=== PATIENT | female | born 1980 | race Hispanic/Latino ===

== ENCOUNTER 2017-04-10 01:52 | Inpatient (IN) | payer OTHER ==
[2017-04-10] MEDS ORDERED: ZOFRAN IV ONE (02:11)
[2017-04-10] MEDS ORDERED: MORPHINE IV ONE (02:11)
[2017-04-10] MEDS ORDERED: NITRO-BID 2% TP ONE (02:11)
--- NOTE | 2017-04-10 02:23 | Emergency Department Report ---
HPI - General Time Seen by Provider: 04/10/17 02:08 - HPI HPI: Room 18 The patient is a 36-year-old female presenting with a chief complaint of chest pain. The patient states her symptoms began this evening awakened her from her sleep with sharp left-sided chest pain. Patient admits to nausea but denies vomiting, shortness of breath or diaphoresis. The patient currently gives her pain a score of 7/10 Location: Left chest Duration: Constant times tonight Quality: Sharp Severity:7/10 Modifying factors: [see above] Context: [see above] Mode of transportation: [not driving] ED Past Medical Hx - Past Medical History Hx Hypertension: Yes Additional medical history: Cardiomegaly - Surgical History Past Surgical History?: No Additional Surgical History: - Family History Family history: no significant - Social History Smoking Status: Current Every Day Smoker (one pack per day) Substance Use Type: None (denies illicit drug use), Alcohol (occasional) ED Review of Systems ROS: Stated complaint: CHEST PAIN Other details as noted in HPI Comment: All other systems reviewed and negative Constitutional: denies: chills, fever Eyes: denies: eye pain, eye discharge, vision change ENT: denies: ear pain, throat pain Respiratory: denies: cough, shortness of breath, wheezing Cardiovascular: chest pain Endocrine: no symptoms reported Gastrointestinal: nausea. denies: vomiting Genitourinary: denies: urgency, dysuria, discharge Musculoskeletal: denies: back pain, joint swelling, arthralgia Skin: denies: rash, lesions Neurological: denies: headache, weakness, paresthesias Psychiatric: denies: anxiety, depression Hematological/Lymphatic: denies: easy bleeding, easy bruising Physical Exam - Physical Exam Physical Exam: GENERAL: The patient is well-developed well-nourished female lying on stretcher not appearing to be in acute distress. [] HEENT: Normocephalic. Atraumatic. Extraocular motions are intact. Patient has moist mucous membranes. NECK: Supple. Trachea midline CHEST/LUNGS: Clear to auscultation. There is no respiratory distress noted. HEART/CARDIOVASCULAR: Regular. There is no tachycardia. There is no gallop rub or murmur. ABDOMEN: Abdomen is soft, nontender. Patient has normal bowel sounds. There is no abdominal distention. SKIN: There is no rash. There is no edema. There is no diaphoresis. NEURO: The patient is awake, alert, and oriented. The patient is cooperative. The patient has normal speech MUSCULOSKELETAL: There is no evidence of acute injury. ED Course - Consultations Consultation #1: 04/10/17 02:02 Case discussed and EKG reviewed with Dr. Moyer. Will call back 04/10/17 02:[address] Moyer stating that EKG shows significant changes from previous EKG. Requests code STEMI be called ED Medical Decision Making - EKG Data -: EKG Interpreted by Me EKG shows normal: sinus rhythm Rate: normal - EKG Data When compared to previous EKG there are: previous EKG unavailable Interpretation: acute CT (ST elevation in leads 1 and aVL with depressions in leads 3, aVF and V5, V6) - Radiology Data Radiology results: image reviewed (chest x-ray) interpreted by me: Chest x-ray-no focal infiltrates, no pneumothorax - Differential Diagnosis STEMI, ACS, pericarditis, GERD Critical care attestation.: If time is entered above; I have spent that time in minutes in the direct care of this critically ill patient, excluding procedure time. ED Disposition Clinical Impression: Chest pain, STEMI (ST elevation myocardial infarction) Disposition: DC-09 OP ADMIT IP TO THIS HOSP Is pt being admited?: Yes Does the pt Need Aspirin: Yes Condition: Serious Instructions: Chest Pain (ED) Time of Disposition: 02:20 (awaiting production laborer)
[2017-04-10] MEDS ORDERED: HEPARIN 10,000 UNITS/10 ML IV ONE (02:29)
[2017-04-10 02:44] LABS: Basophils % (Auto) 0.8 % (0.0-1.8); Eosinophils % (Auto) 2.1 % (0.0-4.3); Hematocrit 46.5 % (30.3-42.9); Hemoglobin 15.4 gm/dl (10.1-14.3); Mean Corpuscular HGB Conc 33 % (30-34); Mean Corpuscular Hemoglobin 28 pg (28-32); Mean Corpuscular Volume 83 fl (79-97); Platelet Count 208 K/mm3 (140-440); Red Blood Count 5.61 M/mm3 (3.65-5.03); Red Cell Distribution Width 14.8 % (13.2-15.2)
[2017-04-10 02:53] LABS: INR 1.01 (0.87-1.13); Partial Thromboplastin Time 31.8 Sec. (24.2-36.6)
[2017-04-10] MEDS ORDERED: HEPARIN/ 0.45% NACL-25,000 UNIT/500 ML 25,000 UNIT/500 ML BAG IV SCH (03:00)
[2017-04-10] MEDS ORDERED: CALAN ONE (03:01)
[2017-04-10] MEDS ORDERED: XYLOCAINE 2% INFILTRATI ONE (03:01)
[2017-04-10] MEDS ORDERED: HEPARIN 10,000 UNITS/10 ML ONE (03:01)
[2017-04-10] MEDS ORDERED: HEPARIN/NS 5000 UNIT/500ML(CATH LAB) 1,000 ML IR ONE (03:01)
[2017-04-10] MEDS ORDERED: NITROGLYCERIN SYRINGE 3 ML ONE (03:02)
[2017-04-10 03:03] LABS: Creatine Kinase MB 2.4 ng/mL (0.0-4.0)
--- NOTE | 2017-04-10 03:03 | History and Physical Report ---
History of Present Illness Date of examination: 04/10/17 Chief complaint: Chest pain History of present illness: Patient is a 36 year old female presenting to the ED with a history of substernal chest pain that began approximately 45 minutes ago, pressure sensation without radiation that woke the patient from sleep. Patient denies additional symptoms of orthopnea, pnd, palpitations, dizziness or syncope. Patient called EMS. EKG shows sinus rhythm with lateral ST elevation with inferior depression changed from previous EKG done 08/23 and [facility]. Past History Past Medical History: hypertension, hyperlipidemia Past Surgical History: No surgical history Social history: smoking. denies: alcohol abuse, IV drug use Family history: no significant family history Medications and Allergies Allergies Allergy/AdvReac Type Severity Reaction Status Date / Time Penicillins Allergy Unknown Verified 04/10/17 02:21 Active Meds: Active Medications Heparin Sodium/Sodium Chloride (Heparin/ 0.45% Nacl-25,000 Unit/500 Ml) 25,000 unit in 500 mls @ 20 mls/hr IV TITRATE LADONNA; 1,000 UNITS/HR PRN Reason: Protocol Last Admin: 04/10/17 02:38 Dose: 1,000 units/hr, 20 mls/hr Review of Systems All systems: negative (pertient positives in HPI) Physical Examination Vital Signs Pulse Resp BP Pulse Ox 89 18 160/114 100 04/10/17 01:54 04/10/17 01:54 04/10/17 01:54 04/10/17 01:54 General appearance: mild distress HEENT: Positive: PERRL, EOMI Neck: Positive: neck supple Cardiac: Positive: Reg Rate and Rhythm, S1/S2 Lungs: Positive: Normal Exam Neuro: Positive: Grossly Intact Abdomen: Positive: Soft, Active Bowel Sounds Extremities: Present: normal Results 04/10/17 02:30 Coagulation 04/10/17 Range/Units 02:30 PT 13.2 (12.2-14.9) Sec. INR 1.01 (0.87-1.13) APTT 31.8 (24.2-36.6) Sec. CBC 04/10/17 Range/Units 02:30 WBC 7.0 (4.5-11.0) K/mm3 RBC 5.61 H (3.65-5.03) M/mm3 Hgb 15.4 H (10.1-14.3) gm/dl Hct 46.5 H (30.3-42.9) % Plt Count 208 (140-440) K/mm3 Lymph # 1.7 (1.2-5.4) K/mm3 [place] # 0.3 (0.0-0.8) K/mm3 Eos # 0.1 (0.0-0.4) K/mm3 Baso # 0.1 (0.0-0.1) K/mm3 EKG interpretations - Telemetry EKG Rhythm: Sinus Rhythm - EKG Sinus rhythms and dysrhythmias: sinus rhythm Repolarization changes or abnormalities: ST suggestive of injury Myocardial infarction: lateral [place] (acute or rece Assessment and Plan STEMI HTN HLD tobacco Patient will go to sleep lab technician for emergent LHC
[2017-04-10 03:04] LABS: Anion Gap 21 mmol/L; BUN/Creatinine Ratio 13.33; Blood Urea Nitrogen 12 mg/dL (7-17); Calcium 8.9 mg/dL (8.4-10.2); Carbon Dioxide 21 mmol/L (22-30); Chloride 102.3 mmol/L (98-107); Creatine Kinase 102 units/L (30-135); Glucose 106 mg/dL (65-100); Potassium 3.9 mmol/L (3.6-5.0); Sodium 140 mmol/L (137-145)
[2017-04-10] MEDS ORDERED: NACL 0.9% 500 ML 500 ML ONE (03:09)
[2017-04-10] MEDS: VERSED ONE ×2 (03:24→03:44)
[2017-04-10] MEDS: SUBLIMAZE ONE ×2 (03:25→03:44)
--- NOTE | 2017-04-10 03:55 | Prelim Cardiac Cath Report ---
Preliminary Cath Report - Hemodynamic Findings Left Ventricular(LV): Severe global hypokinesis End Diastolic Pressure(EDP): 28 mmHg - Other Findings Estimated blood loss: minimal Dominance: left Estimated Ejection Fraction: 15 (EF <20%) Coronary Anatomy: LM coronary artery is a very short vessel. The vessel bifurcates into the LAD and LCx. The LAD and LCx were selectively engaged as the LM is so short. LAD moderate caliber vessel that extends to the distal apex, and wraps around to supply the distal aspect of the inferior wall. The LAD shows moderate diffuse disease throughout without significant stenosis. The septal branches show mild to moderate diffuse disease. There is a large first diagonal branch that should moderate diffuse disease with a 80-90% proximal stenosis. The first diagonal has ALLY III flow. There are 6 small diagonal branches that show moderate to severe diffuse disease. There are very small collateral coming from the distal LAD to supple the distal RCA. There vessels in the distal RCA show severe diffuse disease. LCx is a moderate caliber vessel that gives off one large obtuse marginal that shows moderate diffuse disease. There is a 50-60% stenosis in the proximal obtuse marginal 1 branch. The remainder of the LCx is a small caliber vessel with moderate to severe diffuse disease. The remainder of the obtuse marginal vessels are small, diffusely diseased and filled by bridging collaterals. RCA is a moderate to small caliber vessel with moderate to severe diffuse disease in the main body of the vessel. The distal aspects of the vessel show severe diffuse disease. Post Diagnosis: Coronary artery disease - Patient has non-significant coronary artery disease of the large vessels, but has particularly severe disease diffusely present in the smaller vessels. The patient's anatomy is not amenable to PCI. Recommend aggressive medical therapy and risk factor modification. Patient must stop smoking. Recommendations: medical therapy
[2017-04-10] MEDS ORDERED: LASIX IV SCH (03:59)
[2017-04-10] MEDS ORDERED: ALDACTONE PO ONE (03:59)
[2017-04-10] MEDS ORDERED: ZESTRIL PO ONE (03:59)
[2017-04-10] MEDS ORDERED: COREG PO ONE (03:59)
[2017-04-10] MEDS ORDERED: BABY ASPIRIN PO ONE (04:01)
--- NOTE | 2017-04-10 07:29 | XRay Report ---
AP CHEST: HISTORY: chest pain No comparison. There is poor inspiration. Mild cardiomegaly is suggested. Normal pulmonary vascularity. The lungs are clear. Normal bony structures. IMPRESSION: Slightly limited exam with poor inspiration. Mild cardiomegaly is suspected.
--- NOTE | 2017-04-10 07:36 | Admit Criteria Form ---
Admission Criteria Documentation: MYOCARDIAL INFARCTION Clinical Indications for Admission to Inpatient Care (Place 'X' for any and all applicable criteria): Admission is indicated for 1 or more of the following (1)(2)(3)(4): [X]I. Acute SD [ ]II. Contraindications and/or Inappropriate clinical situations for Observational Care in patients with Myocardial Infarction, when ANY ONE of the following is required: [ ]a) Patient with High risk of cardiac embolism (e.g, patients with previous cardiac embolism, LVEF < 40%, age >75 and patients with prosthetic valve) 18 [ ]b) Patient with Moderate risk including DM patient, CAD and patient aged 65-75 18 [ ]c) Patient with any change in cardiac biomarker especially troponin should be managed as high risk in an inpatient setting 19 [ ]d) Physician judgement irrespective of ECG and other diagnostic findings 20 [ ]III.General contraindications and/or Inappropriate clinical situations for Observational Care in patients with Myocardial Infarction, when ANY ONE of the following is required: [ ]a) Prediction of prolongation of LOS based on ANY ONE of the following may be considered as a contraindication for observational care 2, 3, 4, 5, 6, 7, 8, 9, 10, 11 [ ]i) Age > 65 yrs. [ ]ii) Patient arriving by ambulance [ ]iii) Patient with high acuity [ ]iv) Patient requiring vital sign monitoring [ ]v) Patient on IV medication [ ]b) Systolic blood pressures greater than or equal to 180mmHg 3,12 [ ]c) Patient with altered mental status including delirium and other alteration of consciousness, (3) [ ]d) Patient whose discharge disposition will be to a snf home or rehabilitation home should not be managed in Emergency Department Observation Unit. CMS rule requires 3 days hospital stay before such placement. 3,13 [ ]e) Patient with failure to thrive due to broad array of etiologies 3 ,16,17 [ ]f) Inability to ambulate 3,14 Extended stay beyond goal length of stay may be needed for (1)(18)(20)(24)(25): [ ]a) Hemodynamic instability, persisting symptoms after intensive medical management, or recurring severe, prolonged symptoms [ ]b) Intravascular procedural complications such as acute vessel closure, stent thrombosis, stent malposition, or vessel dissection (26)(27)(28) [ ]c) Extravascular procedural complications such as retroperitoneal hematoma , pericardial effusion, or cardiac tamponade [ ]d) Entry site complications causing bleeding, hematoma or distal ischemia and requiring ongoing monitoring, surgical repair or surgical thrombectomy. Dangerous arrhythmia [ ]e) Complicated percutaneous coronary intervention (e.g., unsuccessful percutaneous coronary intervention or percutaneous coronary intervention of non- [place] vessel) [ ]f) Urgent or emergent surgery for complications of SD (e.g., ventricular rupture, valvular insufficiency) [ ]g) Surgical revascularization via coronary artery bypass graft [ ]h) Heart failure (e.g., pulmonary edema) [ ]i) Unstable pulmonary comorbidities, including COPD or pneumonia (31) [ ]j) Acute renal failure The original [employer] content created by [employer] has been revised. The portions of the content which have been revised are identified through the use of italic text or in bold, and [employer] has neither reviewed nor approved the modified material. All other unmodified content is copyright [facility] Please see references footnoted in the original [facility] edition 2016 Admission Criteria Met: Yes
--- NOTE | 2017-04-10 13:21 | Consultation ---
History of Present Illness - Reason for Consult Consult date: 04/10/17 ICU follow up - History of Present Illness 36 y/o female, admitted with chest pain. Taken to lab animal technologist early am. Found to have small vessel disease and no intervention able to be performed. Patient brought to ICU for further management. From cards note, suggests/recommends medical management. Does have cardiomyopathy, not sure if it is related to disease. EF is less than 20. Past History Past Medical History: hypertension, hyperlipidemia Past Surgical History: No surgical history Social history: smoking. denies: alcohol abuse, IV drug use Family history: no significant family history Medications and Allergies Allergies Allergy/AdvReac Type Severity Reaction Status Date / Time Penicillins Allergy Unknown Verified 04/10/17 02:21 Home Medications Medication Instructions Recorded Confirmed Last Taken Type AtorvaSTATin [Lipitor] 10 mg PO QHS 04/10/17 04/10/17 Unknown History Carvedilol [Coreg] 10 mg PO BID 04/10/17 04/10/17 Unknown History Lisinopril [Zestril] 20 mg PO QDAY 04/10/17 04/10/17 Unknown History Magnesium Oxide [Mag-Ox] 400 mg PO QDAY 04/10/17 04/10/17 Unknown History Potassium Chloride [K-Dur] 40 meq PO QDAY 04/10/17 04/10/17 Unknown History amLODIPine [Norvasc] 5 mg PO DAILY 04/10/17 04/10/17 Unknown History cloNIDine [Catapres] 0.1 mg PO DAILY 04/10/17 04/10/17 Unknown History Active Meds: Active Medications Aspirin (Halfprin Ec) 81 mg PO QDAY LADONNA Atorvastatin Calcium (Lipitor) 40 mg PO QHS LADONNA Carvedilol (Coreg) 6.25 mg PO BID LADONNA Clopidogrel Bisulfate (Plavix) 75 mg PO QDAY LADONNA Furosemide (Lasix) 40 mg IV DAILY LADONNA Lisinopril (Zestril) 5 mg PO QDAY LADONNA Review of Systems All systems: negative Exam - Constitutional Vitals: Temp Pulse Resp BP Pulse Ox 98.7 F 66 14 151/101 97 04/10/17 12:00 04/10/17 09:41 04/10/17 09:41 04/10/17 09:41 04/10/17 09:41 Results - Labs CBC & Chem 7: 04/10/17 02:30 04/10/17 02:30 - Imaging and Cardiology Chest x-ray: image reviewed (cardiomegaly but otherwise, clear lung [place]) Assessment and Plan 36 y/o female with CAD and cardiomyopathy, not suitable for intervention 1. Await cards recs but in meantime, would suggest starting asa, plavix, statin and betablocker (consider low dose coreg) 2. Will check lipid panel 3. may need to consider echo if not done in the last 6-8 months. 4. if no chest pain, please consider transfer to floor.
[2017-04-10] MEDS: COREG PO SCH ×2 (17:05→22:14)
[2017-04-10] MEDS ORDERED: NORCO 5/325 PO ONE (20:00)
[2017-04-11 07:38] LABS: Anion Gap 19 mmol/L; BUN/Creatinine Ratio 11.25; Blood Urea Nitrogen 9 mg/dL (7-17); Calcium 8.4 mg/dL (8.4-10.2); Carbon Dioxide 21 mmol/L (22-30); Chloride 102.7 mmol/L (98-107); Glucose 92 mg/dL (65-100); Sodium 139 mmol/L (137-145)
--- NOTE | 2017-04-11 08:08 | Progress Note ---
Assessment and Plan Chest Pain with ST elevation in the high lateral leads Troponin were only checked once this admission Diffuse coronary artery disease not amenable to PCI Ischemic cardiomyopathy, LVEF 15% by LV gram Chronic uncontrolled systemic hypertension Hyperlipidemia Tobacco abuse Recommendations: May go home on asa, plavix, coreg, amlodipine, imdur, lisinopril, aldactone and clonidine Smoking cessation strongly advised Patient also advised against any future Follow-up within 1 week of discharge Subjective Date of service: 04/11/17 Principal diagnosis: Chest Pain Interval history: patient denies chest pain or shortness of breath this morning no arrhythmias recorded on tele Objective Vital Signs Temp Pulse Pulse Pulse Pulse Resp BP 04/11/17 07:52 99.2 F 04/11/17 05:20 83 22 163/117 04/11/17 05:11 79 21 165/114 04/11/17 05:00 81 21 165/114 04/11/17 04:51 81 20 173/123 04/11/17 04:41 81 23 173/123 04/11/17 04:31 84 22 173/123 04/11/17 04:21 80 23 173/123 04/11/17 04:11 80 23 173/123 04/11/17 04:00 98.8 F 173/123 04/11/17 03:51 75 17 168/119 04/11/17 03:41 77 17 168/119 04/11/17 03:31 76 18 168/119 04/11/17 03:21 75 18 168/119 04/11/17 03:11 77 19 168/119 04/11/17 03:00 78 18 168/119 04/11/17 02:51 74 20 165/116 04/11/17 02:41 77 16 165/116 04/11/17 02:31 77 13 165/116 04/11/17 02:21 71 17 165/116 04/11/17 02:11 70 18 165/116 04/11/17 02:00 74 12 165/116 04/11/17 01:51 77 17 163/114 04/11/17 01:41 74 19 163/114 04/11/17 01:31 84 21 163/114 04/11/17 01:21 79 20 163/114 04/11/17 01:11 73 16 163/114 04/11/17 01:00 70 22 163/114 04/11/17 00:51 73 16 163/106 04/11/17 00:41 83 16 163/106 04/11/17 00:31 74 17 163/106 04/11/17 00:21 79 17 163/106 04/11/17 00:11 75 16 163/106 04/11/17 00:05 80 16 163/106 04/11/17 00:00 70 77 18 163/106 04/10/17 23:51 83 16 161/119 04/10/17 23:42 98.8 F 04/10/17 23:41 77 16 161/119 04/10/17 23:31 72 18 161/119 04/10/17 23:21 75 16 159/103 04/10/17 23:11 72 17 159/103 04/10/17 23:00 81 17 159/103 04/10/17 22:51 71 17 154/109 04/10/17 22:41 72 18 154/109 04/10/17 22:31 78 16 154/109 04/10/17 22:21 75 17 154/109 04/10/17 22:11 75 18 154/109 04/10/17 22:00 78 21 154/109 04/10/17 21:51 83 19 192/111 04/10/17 21:41 87 24 192/111 04/10/17 21:31 73 22 192/111 04/10/17 21:21 78 17 192/111 04/10/17 21:11 82 26 H 149/105 04/10/17 21:01 83 26 H 149/105 04/10/17 20:51 80 19 192/111 04/10/17 20:43 89 25 H 192/111 04/10/17 20:31 87 14 192/111 04/10/17 20:20 85 12 192/111 04/10/17 20:11 82 19 179/121 04/10/17 20:00 98.9 F 84 77 77 77 20 180/124 04/10/17 19:51 84 22 156/118 04/10/17 19:41 87 23 156/118 04/10/17 19:31 81 30 H 156/118 04/10/17 19:21 78 20 156/118 04/10/17 19:11 82 18 169/116 04/10/17 19:00 88 24 169/116 08/03/17 18:51 83 16 156/118 04/10/17 18:41 77 25 H 156/118 04/10/17 18:31 86 156/118 04/10/17 18:11 84 13 156/118 04/10/17 18:00 89 17 156/118 04/10/17 17:51 80 15 155/106 04/10/17 17:41 89 20 155/106 04/10/17 17:31 76 21 155/106 04/10/17 17:21 72 17 155/106 04/10/17 17:11 77 20 155/106 04/10/17 17:05 76 154/108 04/10/17 17:00 79 16 155/106 04/10/17 16:51 72 21 154/108 04/10/17 16:41 79 20 154/108 04/10/17 16:30 77 22 154/108 04/10/17 16:21 81 23 164/112 04/10/17 16:11 71 17 164/112 04/10/17 16:00 73 21 164/112 04/10/17 15:51 74 14 157/108 04/10/17 15:41 77 17 157/108 04/10/17 15:31 86 21 157/108 04/10/17 15:21 78 23 157/108 04/10/17 15:11 81 23 157/108 04/10/17 15:00 79 18 157/108 04/10/17 12:00 98.7 F 04/10/17 09:41 66 14 151/101 04/10/17 09:31 69 14 151/101 04/10/17 09:21 67 18 151/101 04/10/17 09:11 66 12 151/101 04/10/17 09:01 68 14 151/101 04/10/17 08:51 68 13 144/96 04/10/17 08:41 65 12 144/96 04/10/17 08:31 62 13 144/96 04/10/17 08:21 65 14 144/96 04/10/17 08:11 65 13 144/96 Pulse Ox 04/11/17 07:52 04/11/17 05:20 97 04/11/17 05:11 98 04/11/17 05:00 96 04/11/17 04:51 94 08/17 04:41 95 04/11/17 04:31 98 04/11/17 04:21 97 04/11/17 04:11 97 04/11/17 04:00 04/11/17 03:51 96 04/11/17 03:41 95 04/11/17 03:31 96 04/11/17 03:21 97 04/11/17 03:11 95 04/11/17 03:00 97 04/11/17 02:51 98 04/11/17 02:41 96 04/11/17 02:31 97 04/11/17 02:21 97 04/11/17 02:11 97 04/11/17 02:00 96 04/11/17 01:51 97 04/11/17 01:41 95 04/11/17 01:31 97 04/11/17 01:21 95 04/11/17 01:11 96 04/11/17 01:00 94 04/11/17 00:51 91 04/11/17 00:41 96 04/11/17 00:31 96 04/11/17 00:21 95 04/11/17 00:11 94 04/11/17 00:05 96 04/11/17 00:00 96 04/10/17 23:51 97 04/10/17 23:42 04/10/17 23:41 94 04/10/17 23:31 94 04/10/17 23:21 95 04/10/17 23:11 95 04/10/17 23:00 95 04/10/17 22:51 95 04/10/17 22:41 95 04/10/17 22:31 96 04/10/17 22:21 95 04/10/17 22:11 96 04/10/17 22:00 95 04/10/17 21:51 94 04/10/17 21:41 98 04/10/17 21:31 92 04/10/17 21:21 96 04/10/17 21:11 95 04/10/17 21:01 99 04/10/17 20:51 97 04/10/17 20:43 96 04/10/17 20:31 97 04/10/17 20:20 99 04/10/17 20:11 97 04/10/17 20:00 96 04/10/17 19:51 96 04/10/17 19:41 97 04/10/17 19:31 94 04/10/17 19:21 97 04/10/17 19:11 96 04/10/17 19:00 98 04/10/17 18:51 98 04/10/17 18:41 98 04/10/17 18:31 04/10/17 18:11 99 04/10/17 18:00 98 04/10/17 17:51 98 04/10/17 17:41 98 04/10/17 17:31 97 04/10/17 17:21 99 04/10/17 17:11 96 04/10/17 17:05 04/10/17 17:00 98 04/10/17 16:51 99 04/10/17 16:41 96 04/10/17 16:30 98 04/10/17 16:21 98 04/10/17 16:11 97 04/10/17 16:00 98 04/10/17 15:51 98 04/10/17 15:41 98 04/10/17 15:31 99 04/10/17 15:21 98 04/10/17 15:11 97 04/10/17 15:00 98 04/10/17 12:00 04/10/17 09:41 97 04/10/17 09:31 97 04/10/17 09:21 97 04/10/17 09:11 97 04/10/17 09:01 97 04/10/17 08:51 96 04/10/17 08:41 97 04/10/17 08:31 98 04/10/17 08:21 96 04/10/17 08:11 97 - Physical Examination HEENT: Positive: PERRL, EOMI Neck: Positive: neck supple Cardiac: Positive: Reg Rate and Rhythm Lungs: Positive: Normal Exam, clear to auscultation Neuro: Positive: Grossly Intact Abdomen: Positive: Soft, Active Bowel Sounds Extremities: Present: normal - Labs and Meds Lipids 04/11/17 Range/Units 05:18 Triglycerides 112 (2-149) mg/dL Cholesterol 146 (50-199) mg/dL HDL Cholesterol 34 L (40-59) mg/dL Cholesterol/HDL Ratio 4.29 % Comprehensive Metabolic Panel 04/11/17 Range/Units 07:09 Sodium 139 (137-145) mmol/L Potassium 4.0 (3.6-5.0) mmol/L Chloride 102.7 (98-107) mmol/L Carbon Dioxide 21 L (22-30) mmol/L BUN 9 (7-17) mg/dL Creatinine 0.8 (0.7-1.2) mg/dL Glucose 92 (65-100) mg/dL Calcium 8.4 (8.4-10.2) mg/dL - EKG Sinus rhythms and dysrhythmias: sinus rhythm Repolarization changes or abnormalities: ST suggestive of injury Myocardial infarction: lateral [place] (acute or rece
[2017-04-11] MEDS ORDERED: NITROSTAT SL PRN (08:11)
--- NOTE | 2017-04-11 08:27 | Discharge Summary ---
Providers - Providers Date of Admission: 04/10/17 02:56 Date of discharge: 04/11/17 Attending physician: TISH NARAYAN 04/10/17 12:10 Consult to Physician [CONS] Urgent Consulting Provider: EMILEE GARNETT Reason For Exam: critical care management Place consult to:: Notified:: [id number] Was contact made?: Yes If yes, spoke with:: Time called:: 12:06 04/10/17 18:15 Consult to Cardiac Rehabilitation [CONS] Urgent Reason For Exam: diffuse cardiac disease Primary care physician: SIDE DOOR WORKER Hospitalization Condition: Good Hospital course: This is a 36yr old woman with a history of Hypertension, Hyperlipidemia, tobacco abuse who presented with chest pain. An EKG showed lateral ST elevation with inferior depression and she was taken to the environmental laboratory technician emergently. A cardiac cath showed diffuse coronary artery disease not amenable for PCI. Left ventricular ejection fraction 15% by LV gram. Post cardiac cath, the patient has remained chest pain free. She denies shortness of breath. Medical therapy for her coronary artery disease and ischemic cardiomyopathy to include DAPT with plavix and aspirin, nitrates, beta denins, afterload reduction, aldactone and statin therapy. Smoking cessation strongly advised. Patient also advised against any future pregnancies. Follow up with [facility]. as scheduled on April 17. Disposition: DC-01 TO HOME OR SELFCARE Core Measure Documentation - Palliative Care Palliative Care/ Comfort Measures: Not Applicable - Core Measures Any of the following diagnoses?: acute NH - Acute NH Discharge Requirements Aspirin at discharge: Yes LIZZIE/ARB for LVSD if EF <40%: Yes Beta dennis at discharge: Yes Statin for LDL = or >100 mg/dl on DC: Yes Exam - Constitutional Vitals: Temp Pulse Resp BP Pulse Ox 99.2 F 83 22 163/117 97 04/11/17 07:52 04/11/17 05:20 04/11/17 05:20 04/11/17 05:20 04/11/17 05:20 Plan Activity: advance as tolerated Diet: low fat, low cholesterol, low salt Special Instructions: smoking cessation Follow up with: CHE MURRAY MD [Primary Care Provider] - 3-5 Days RADHA DAVIS MD [Staff Physician] - 7 Days Prescriptions: AtorvaSTATin [Lipitor] 40 mg PO QHS #30 tablet Aspirin EC [Aspirin Enteric Coated TAB] 81 mg PO QDAY #30 tablet Carvedilol [Coreg] 12.5 mg PO BID #60 tablet cloNIDine [Catapres] 0.1 mg PO Q12HR #60 tablet Clopidogrel [Plavix] 75 mg PO QDAY #30 tablet ISOSORBIDE MONOnitrate [Imdur ER] 30 mg PO QDAY #30 tablet Lisinopril [Zestril TAB] 20 mg PO QDAY #30 tablet Spironolactone [Aldactone] 25 mg PO QDAY #30 tablet
[2017-04-11] MEDS: PLAVIX PO SCH (09:19)
[2017-04-11] MEDS: IMDUR PO SCH (09:19)
[2017-04-11] MEDS: CATAPRES PO SCH ×2 (09:20→23:13)
[2017-04-11] MEDS: HALFPRIN EC PO SCH (09:20)
[2017-04-11] MEDS: COREG PO SCH ×2 (09:20→23:13)
[2017-04-11] MEDS: ALDACTONE PO SCH (09:21)
[2017-04-11] MEDS: ZESTRIL PO SCH (09:21)
[2017-04-11] MEDS: LASIX PO SCH (09:56)
[2017-04-11] MEDS ORDERED: ZESTRIL PO SCH (10:00)
[2017-04-11] MEDS: NORCO 5/325 PO PRN (17:52)
[2017-04-12 05:43] LABS: Hematocrit 43.4 % (30.3-42.9); Hemoglobin 14.6 gm/dl (10.1-14.3)
[2017-04-12 07:47] LABS: Anion Gap 19 mmol/L; BUN/Creatinine Ratio 13.33; Blood Urea Nitrogen 12 mg/dL (7-17); Calcium 8.5 mg/dL (8.4-10.2); Carbon Dioxide 21 mmol/L (22-30); Chloride 100.8 mmol/L (98-107); Glucose 87 mg/dL (65-100); Potassium 3.6 mmol/L (3.6-5.0); Sodium 137 mmol/L (137-145)
--- NOTE | 2017-04-12 09:33 | Progress Note ---
Assessment and Plan Chest Pain with ST elevation in the high lateral leads Diffuse coronary artery disease not amenable to PCI Ischemic cardiomyopathy, LVEF 15% by LV gram systemic hypertension Hyperlipidemia Tobacco abuse Continue aggressive medical therapy Continue moderate intensity statins Continue dual antiplatelets therapy In view of the new onset ischemic cardiomyopathy patient is being evaluated for the lifevest [facility] has been contacted Subjective Date of service: 04/12/17 Principal diagnosis: Chest Pain Interval history: Patient transferred to the telemetry No significant anginal episodes Objective Vital Signs Temp Pulse Resp Resp BP Pulse Ox 04/12/17 05:00 98.3 F 72 18 133/80 99 04/12/17 03:20 70 04/12/17 00:09 20 04/12/17 00:00 20 04/11/17 23:13 68 138/78 04/11/17 21:00 68 13 138/78 04/11/17 20:50 72 24 138/78 04/11/17 20:40 70 17 138/78 04/11/17 20:30 67 19 138/78 04/11/17 20:20 66 21 138/78 04/11/17 20:10 73 20 138/78 04/11/17 20:00 75 19 138/78 04/11/17 19:50 72 19 135/71 04/11/17 19:49 100.1 F H 04/11/17 19:40 70 22 135/71 04/11/17 19:30 71 21 111/64 04/11/17 19:20 71 20 111/64 04/11/17 19:10 72 23 111/64 04/11/17 19:00 74 25 H 111/64 04/11/17 18:50 79 22 111/64 04/11/17 18:40 79 27 H 111/64 04/11/17 18:30 80 24 111/64 04/11/17 18:20 81 29 H 111/64 04/11/17 18:10 79 25 H 111/64 04/11/17 18:00 77 29 H 111/64 04/11/17 17:50 75 22 111/64 - Physical Examination Narrative exam: GEN: NAD HEENT: Carotids 2+ NECK: SUPPLE, CVS: RRR, NORMAL S1S2 LUNGS/CHEST: CTA ABD: SOFT, MSK: FROM X 4 EXTREMITIES NEURO: CN 2-12 GROSSLY INTACT, NO FOCAL DEFICITS PSY: CALM HEENT: Positive: PERRL, EOMI Neck: Positive: neck supple Neuro: Positive: Grossly Intact Abdomen: Positive: Soft, Active Bowel Sounds Extremities: Present: normal - Labs and Meds CBC 04/12/17 Range/Units 03:42 Hgb 14.6 H (10.1-14.3) gm/dl Hct 43.4 H (30.3-42.9) % Plt Count 178 (140-440) K/mm3 Comprehensive Metabolic Panel 04/12/17 Range/Units 06:23 Sodium 137 (137-145) mmol/L Potassium 3.6 (3.6-5.0) mmol/L Chloride 100.8 (98-107) mmol/L Carbon Dioxide 21 L (22-30) mmol/L BUN 12 (7-17) mg/dL Creatinine 0.9 (0.7-1.2) mg/dL Glucose 87 (65-100) mg/dL Calcium 8.5 (8.4-10.2) mg/dL - EKG Sinus rhythms and dysrhythmias: sinus rhythm Repolarization changes or abnormalities: ST suggestive of injury Myocardial infarction: lateral [place] (acute or rece
[2017-04-12] MEDS: LASIX PO SCH (09:43)
[2017-04-12] MEDS: COREG PO SCH ×2 (09:43→22:11)
[2017-04-12] MEDS: IMDUR PO SCH (09:43)
[2017-04-12] MEDS: ALDACTONE PO SCH (09:44)
[2017-04-12] MEDS: CATAPRES PO SCH ×2 (09:44→22:11)
[2017-04-12] MEDS: ZESTRIL PO SCH (09:45)
[2017-04-12] MEDS: HALFPRIN EC PO SCH (09:45)
[2017-04-12] MEDS: PLAVIX PO SCH (09:45)
[2017-04-12] MEDS: NORCO 5/325 PO PRN (22:12)
[2017-04-13] MEDS: HALFPRIN EC PO SCH (09:11)
[2017-04-13] MEDS: PLAVIX PO SCH (09:11)
[2017-04-13] MEDS: COREG PO SCH ×2 (09:11→21:50)
[2017-04-13] MEDS: LASIX PO SCH (09:12)
[2017-04-13] MEDS: CATAPRES PO SCH ×2 (09:13→21:50)
[2017-04-13] MEDS: IMDUR PO SCH (09:13)
[2017-04-13] MEDS: ALDACTONE PO SCH (09:14)
[2017-04-13] MEDS: ZESTRIL PO SCH (09:14)
[2017-04-13 09:24] LABS: Anion Gap 21 mmol/L; BUN/Creatinine Ratio 13.33; Blood Urea Nitrogen 12 mg/dL (7-17); Calcium 8.6 mg/dL (8.4-10.2); Carbon Dioxide 20 mmol/L (22-30); Glucose 101 mg/dL (65-100); Potassium 4.1 mmol/L (3.6-5.0); Sodium 140 mmol/L (137-145)
--- NOTE | 2017-04-13 10:29 | Progress Note ---
Assessment and Plan Chest Pain with ST elevation in the high lateral leads Diffuse coronary artery disease not amenable to PCI Ischemic cardiomyopathy, LVEF 15% by LV gram systemic hypertension Hyperlipidemia Tobacco abuse Continue aggressive medical therapy Continue moderate intensity statins Continue dual antiplatelets therapy In view of the new onset ischemic cardiomyopathy patient is being evaluated for the lifevest [facility] has been contacted Awaiting life vest Subjective Date of service: 04/13/17 Principal diagnosis: Chest Pain Interval history: No events overnight No significant anginal episodes Objective Vital Signs Temp Pulse Pulse Resp BP Pulse Ox 04/13/17 09:14 72 121/82 04/13/17 09:13 72 121/82 04/13/17 09:11 72 121/82 04/13/17 07:35 98.1 F 72 18 121/82 99 04/13/17 04:52 98 F 69 20 113/75 100 04/13/17 00:10 98.6 F 65 18 113/72 99 04/12/17 20:15 65 04/12/17 20:11 98.5 F 71 20 138/88 99 04/12/17 17:40 99.1 F 70 18 125/87 04/12/17 17:14 58 L 04/12/17 17:13 58 L 04/12/17 12:05 99.1 F 73 20 122/75 - Physical Examination Narrative exam: GEN: NAD HEENT: Carotids 2+ NECK: SUPPLE, CVS: RRR, NORMAL S1S2 LUNGS/CHEST: CTA ABD: SOFT, MSK: FROM X 4 EXTREMITIES NEURO: CN 2-12 GROSSLY INTACT, NO FOCAL DEFICITS PSY: CALM HEENT: Positive: PERRL, EOMI Neck: Positive: neck supple Neuro: Positive: Grossly Intact Abdomen: Positive: Soft, Active Bowel Sounds Extremities: Present: normal - Labs and Meds Comprehensive Metabolic Panel 04/13/17 Range/Units 08:15 Sodium 140 (137-145) mmol/L Potassium 4.1 (3.6-5.0) mmol/L Chloride 103.0 (98-107) mmol/L Carbon Dioxide 20 L (22-30) mmol/L BUN 12 (7-17) mg/dL Creatinine 0.9 (0.7-1.2) mg/dL Glucose 101 H (65-100) mg/dL Calcium 8.6 (8.4-10.2) mg/dL - EKG Sinus rhythms and dysrhythmias: sinus rhythm Repolarization changes or abnormalities: ST suggestive of injury Myocardial infarction: lateral [place] (acute or rece
--- NOTE | 2017-04-14 10:42 | Progress Note ---
Assessment and Plan Chest Pain with ST elevation in the high lateral leads [facility] reports: diffuse coronary artery disease not amenable to PCI Ischemic cardiomyopathy, LVEF 15% by LV gram Systemic hypertension Hyperlipidemia Tobacco abuse Plan: Continue aggressive medical therapy for her ischemic cardiomyopathy and coronary disease. Awaits life vest before discharge. Subjective Date of service: 04/14/17 Principal diagnosis: Chest Pain Interval history: No events on telemetry. Awaiting lifevest placement. Objective Vital Signs Temp Pulse Pulse Resp BP Pulse Ox 04/14/17 08:43 98.8 F 67 18 151/98 99 04/14/17 05:03 98.3 F 66 18 145/96 98 04/14/17 00:37 98.4 F 64 18 130/76 100 04/13/17 20:42 98.2 F 68 18 132/80 100 04/13/17 20:10 68 04/13/17 17:10 98.0 F 68 18 128/83 98 04/13/17 16:12 63 04/13/17 16:11 63 - Physical Examination HEENT: Positive: PERRL, EOMI Neck: Positive: neck supple Neuro: Positive: Grossly Intact Abdomen: Positive: Soft, Active Bowel Sounds Extremities: Present: normal - Labs and Meds CBC 04/14/17 Range/Units 04:00 Hgb 14.0 (10.1-14.3) gm/dl Hct 42.0 (30.3-42.9) % Plt Count 186 (140-440) K/mm3 - EKG Sinus rhythms and dysrhythmias: sinus rhythm Repolarization changes or abnormalities: ST suggestive of injury Myocardial infarction: lateral [place] (acute or rece
[2017-04-14] MEDS: ZESTRIL PO SCH (11:04)
[2017-04-14] MEDS: LASIX PO SCH (11:04)
[2017-04-14] MEDS: PLAVIX PO SCH (11:05)
[2017-04-14] MEDS: IMDUR PO SCH (11:05)
[2017-04-14] MEDS: COREG PO SCH ×2 (11:05→21:56)
[2017-04-14] MEDS: CATAPRES PO SCH ×2 (11:06→21:56)
[2017-04-14] MEDS: HALFPRIN EC PO SCH (11:06)
[2017-04-14] MEDS: ALDACTONE PO SCH (11:06)
[2017-04-14] MEDS: NORCO 5/325 PO PRN (19:48)
[2017-04-15] MEDS: PLAVIX PO SCH (09:38)
[2017-04-15] MEDS: IMDUR PO SCH (09:38)
[2017-04-15] MEDS: HALFPRIN EC PO SCH (09:39)
[2017-04-15] MEDS: COREG PO SCH (09:39)
[2017-04-15] MEDS: ZESTRIL PO SCH (09:39)
[2017-04-15] MEDS: ALDACTONE PO SCH (09:40)
[2017-04-15] MEDS: LASIX PO SCH (09:40)
[2017-04-15] MEDS: CATAPRES PO SCH (09:40)
--- NOTE | 2017-04-15 10:26 | Progress Note ---
Assessment and Plan Chest Pain with ST elevation in the high lateral leads [facility] reports: diffuse coronary artery disease not amenable to PCI Ischemic cardiomyopathy, LVEF 15% by LV gram Systemic hypertension Hyperlipidemia Tobacco abuse Plan: Continue aggressive medical therapy for her ischemic cardiomyopathy and coronary disease. Advised smoking cessation. Awaits life vest before discharge. Subjective Date of service: 04/15/17 Principal diagnosis: Chest Pain Interval history: Patient has no complaints. No reported events on telemetry overnight. Awaits lifevest placement. Objective Vital Signs Temp Pulse Pulse Resp BP Pulse Ox 04/15/17 09:38 65 147/96 04/15/17 08:51 98.6 F 65 18 147/96 99 04/15/17 04:15 98.5 F 58 L 18 137/84 99 04/15/17 00:59 97.4 F L 68 18 134/86 99 04/14/17 22:00 78 67 04/14/17 21:56 64 138/92 04/14/17 20:49 97.7 F 64 18 138/92 99 04/14/17 17:35 98.3 F 61 18 128/85 99 - Physical Examination General: No Apparent Distress HEENT: Positive: PERRL Neck: Positive: trachea midline Cardiac: Positive: Reg Rate and Rhythm Lungs: Positive: Decreased Breath Sounds Neuro: Positive: Grossly Intact Extremities: Present: normal - EKG Sinus rhythms and dysrhythmias: sinus rhythm Repolarization changes or abnormalities: ST suggestive of injury Myocardial infarction: lateral [place] (acute or rece
[2017-04-15 13:00] VITALS: BP 148/99
--- NOTE | 2017-04-15 16:01 | Discharge Summary ---
Providers - Providers Date of Admission: 04/11/17 17:47 Date of discharge: 04/15/17 Attending physician: TISH NARAYAN Primary care physician: COATER HELPER Hospitalization Condition: Good Hospital course: This is a 36yr old woman with a history of Hypertension, Hyperlipidemia, tobacco abuse who presented with chest pain. An EKG showed lateral ST elevation with inferior depression and she was taken to the lab engineer emergently. A cardiac cath showed diffuse coronary artery disease not amenable for PCI. Left ventricular ejection fraction 15% by LV gram. Post cardiac cath, the patient has remained chest pain free. She denies shortness of breath. Medical therapy for her coronary artery disease and ischemic cardiomyopathy to include DAPT with plavix and aspirin, nitrates, beta dennis, afterload reduction, aldactone and statin therapy. Smoking cessation strongly advised. Patient also advised against any future pregnancies. Follow up with [facility] as scheduled on April 17. Disposition: DC-01 TO HOME OR SELFCARE Core Measure Documentation - Palliative Care Palliative Care/ Comfort Measures: Not Applicable - Core Measures Any of the following diagnoses?: acute [place] - Acute [place] Discharge Requirements Aspirin at discharge: Yes LIZZIE/ARB for LVSD if EF <40%: Yes Beta dennis at discharge: Yes Statin for LDL = or >100 mg/dl on DC: Yes Exam - Constitutional Vitals: Temp Pulse Resp BP Pulse Ox 98.3 F 67 18 148/99 99 04/15/17 12:59 04/15/17 12:59 04/15/17 12:59 04/15/17 12:59 04/15/17 12:59 Plan Activity: advance as tolerated Diet: low fat, low cholesterol, low salt Special Instructions: smoking cessation Follow up with: RADHA DAVIS MD [Staff Physician] - 7 Days PRIMARY CARE, [Primary Care Provider] - 3-5 Days Prescriptions: AtorvaSTATin [Lipitor] 40 mg PO QHS #30 tablet Aspirin EC [Aspirin Enteric Coated TAB] 81 mg PO QDAY #30 tablet Carvedilol [Coreg] 12.5 mg PO BID #60 tablet cloNIDine [Catapres] 0.1 mg PO Q12HR #60 tablet Clopidogrel [Plavix] 75 mg PO QDAY #30 tablet ISOSORBIDE MONOnitrate [Imdur ER] 30 mg PO QDAY #30 tablet Lisinopril [Zestril TAB] 20 mg PO QDAY #30 tablet Spironolactone [Aldactone] 25 mg PO QDAY #30 tablet
== END 2017-04-15 20:15 | disposition home or self-care (01) | DRG 282 ==
LOC: ED 01:52 → CC1 02:56 → OBSVTOIN 04-11 17:47 → 4A 04-11 22:40
PROVIDERS: ADMIT Internal Medicine Cardiovascular Disease; ATTEND Internal Medicine Cardiovascular Disease
PROC: 4A023N7 Measurement of Cardiac Sampling and Pressure, Left Heart, Percutaneous Approach (ICD-10-PCS; principal; 2017-04-10)
PROC: B2111ZZ Fluoroscopy of Multiple Coronary Arteries using Low Osmolar Contrast (ICD-10-PCS; 2017-04-10)
PROC: B2151ZZ Fluoroscopy of Left Heart using Low Osmolar Contrast (ICD-10-PCS; 2017-04-10)
DX: I21.3 ST elevation (STEMI) myocardial infarction of unspecified site (principal); E78.5 Hyperlipidemia, unspecified; I10 Essential (primary) hypertension; F17.210 Nicotine dependence, cigarettes, uncomplicated; Z88.0 Allergy status to penicillin; I25.10 Atherosclerotic heart disease of native coronary artery without angina pectoris; I25.5 Ischemic cardiomyopathy
CPT/HCPCS: 36415; 71010; 80048; 80061; 82550; 82553; 83880; 84484; 85014; 85018; 85025; 85049; 85610; 85730; 93005; 93010; 93306; 93458; 96374; 96375; 99406; A9270-GY; C1887; C1894; G0378; J1644; J2250; J2270; J2405; J3010; J7040; Q9967